=== PATIENT | female | born 1930 | race Caucasian/White ===

== ENCOUNTER 2016-09-28 16:59 | Emergency (ER) | payer MEDICARE, OTHER ==
[2016-09-28 17:21] VITALS: BP 158/82
[2016-09-28] MEDS ORDERED: Sodium Chloride 0.9% 10 ML Syringe FLUSH PRN (17:50)
[2016-09-28] MEDS ORDERED: Ondansetron 4 MG/2 ML SDV IVPUSH ONE (17:52)
[2016-09-28] MEDS ORDERED: Sodium Chloride 0.9% 500 ML IV ONE ×2 (17:52→19:20)
--- NOTE | 2016-09-28 17:52 | EDM.PDOC ---
<Peter Ramirez - Last Filed: 10/02/16 07:19> ED HPI GENERAL MEDICAL PROBLEM - General Chief Complaint: Gastrointestinal Problem Stated Complaint: VOMITING/DIARRHEA Time Seen by Provider: 09/28/16 17:32 - Related Data Allergies Allergy/AdvReac Type Severity Reaction Status Date / Time Penicillins Allergy unknown Verified 09/28/16 17:17 Course - Vital Signs Last Recorded V/S: Last Vital Signs Temp 36.2 C 09/28/16 17:17 Pulse 72 09/28/16 17:17 Resp 15 09/28/16 17:17 BP 158/82 H 09/28/16 17:17 Pulse Ox 94 L 09/28/16 17:17 Orthostatic Blood Pressure [ 143/74 Standing] Orthostatic Blood Pressure [ 149/79 Sitting] Orthostatic Blood Pressure [ 144/77 Supine] - Orders/Labs/Meds Labs: Laboratory Tests 09/28/16 09/28/16 09/28/16 Range/Units 18:20 18:20 18:20 WBC 12.69 H (3.98-10.04) K/mm3 RBC 5.23 H (3.98-5.22) M/mm3 Hgb 15.3 (11.2-15.7) gm/L Hct 46.5 H (34.1-44.9) % MCV 88.9 (79.4-94.8) fl MCH 29.3 (25.6-32.2) pg MCHC 32.9 (32.2-35.5) g/dl RDW Std Deviation 45.4 (36.4-46.3) fL Plt Count 291 (182-369) K/mm3 MPV 11.1 (9.4-12.3) fl Neut % (Auto) 87.6 H (34.0-71.1) % Lymph % (Auto) 8.8 L (19.3-51.7) % [place] % (Auto) 2.8 L (4.7-12.5) % Eos % (Auto) 0.3 L (0.7-5.8) Baso % (Auto) 0.2 (0.1-1.2) % Neut # (Auto) 11.12 H (1.56-6.13) K/mm3 Lymph # (Auto) 1.12 L (1.18-3.74) K/mm3 [place] # (Auto) 0.35 (0.24-0.36) K/mm3 Eos # (Auto) 0.04 (0.04-0.36) K/mm3 Baso # (Auto) 0.02 (0.01-0.08) K/mm3 Manual Slide Review Abnormal smear Sodium 144 (136-145) mEq/L Potassium 4.1 (3.5-5.1) mEq/L Chloride 107 (98-107) mEq/L Carbon Dioxide 27 (21-32) mEq/L Anion Gap 14.1 (5-15) BUN 15 (7-18) mg/dL Creatinine 1.1 H (0.55-1.02) mg/dL Est Cr Clr Drug Dosing 28.50 mL/min Estimated GFR (MDRD) 47 (>60) mL/min BUN/Creatinine Ratio 13.6 L (14-18) Glucose 132 H (83-115) mg/dL Calcium 9.8 (8.5-10.1) mg/dL Total Bilirubin 0.7 (0.2-1.0) mg/dL AST 18 (15-37) U/L ALT 30 (14-59) U/L Alkaline Phosphatase 84 (46-116) U/L Troponin I < 0.017 (0.00-0.056) ng/mL C-Reactive Protein < 0.2 (<1.0) mg/dL B-Natriuretic Peptide 81 (0-100) pg/mL Total Protein 8.0 (6.4-8.2) g/dl Albumin 4.0 (3.4-5.0) g/dl Globulin 4.0 gm/dL Albumin/Globulin Ratio 1.0 (1-2) Urine Color (Yellow) Urine Appearance (Clear) Urine pH (5.0-8.0) Ur Specific [place] (1.005-1.030) Urine Protein (Negative) Urine Glucose (UA) (Negative) Urine Ketones (Negative) Urine Occult Blood (Negative) Urine Nitrite (Negative) Urine Bilirubin (Negative) Urine Urobilinogen (0.2-1.0) Ur Leukocyte Esterase (Negative) Urine RBC (0-5) /hpf Urine WBC (0-5) /hpf Ur Epithelial Cells (0-5) /hpf Amorphous Sediment (NOT SEEN) /hpf Urine Bacteria (FEW) /hpf Urine Mucus (FEW) /hpf 09/28/16 Range/Units 19:17 WBC (3.98-10.04) K/mm3 RBC (3.98-5.22) M/mm3 Hgb (11.2-15.7) gm/L Hct (34.1-44.9) % MCV (79.4-94.8) fl MCH (25.6-32.2) pg MCHC (32.2-35.5) g/dl RDW Std Deviation (36.4-46.3) fL Plt Count (182-369) K/mm3 MPV (9.4-12.3) fl Neut % (Auto) (34.0-71.1) % Lymph % (Auto) (19.3-51.7) % [place] % (Auto) (4.7-12.5) % Eos % (Auto) (0.7-5.8) Baso % (Auto) (0.1-1.2) % Neut # (Auto) (1.56-6.13) K/mm3 Lymph # (Auto) (1.18-3.74) K/mm3 [place] # (Auto) (0.24-0.36) K/mm3 Eos # (Auto) (0.04-0.36) K/mm3 Baso # (Auto) (0.01-0.08) K/mm3 Manual Slide Review Sodium (136-145) mEq/L Potassium (3.5-5.1) mEq/L Chloride (98-107) mEq/L Carbon Dioxide (21-32) mEq/L Anion Gap (5-15) BUN (7-18) mg/dL Creatinine (0.55-1.02) mg/dL Est Cr Clr Drug Dosing mL/min Estimated GFR (MDRD) (>60) mL/min BUN/Creatinine Ratio (14-18) Glucose (83-115) mg/dL Calcium (8.5-10.1) mg/dL Total Bilirubin (0.2-1.0) mg/dL AST (15-37) U/L ALT (14-59) U/L Alkaline Phosphatase (46-116) U/L Troponin I (0.00-0.056) ng/mL C-Reactive Protein (<1.0) mg/dL B-Natriuretic Peptide (0-100) pg/mL Total Protein (6.4-8.2) g/dl Albumin (3.4-5.0) g/dl Globulin gm/dL Albumin/Globulin Ratio (1-2) Urine Color Yellow (Yellow) Urine Appearance Slt cloudy H (Clear) Urine pH 7.5 (5.0-8.0) Ur Specific [place] 1.020 (1.005-1.030) Urine Protein 1+ H (Negative) Urine Glucose (UA) Negative (Negative) Urine Ketones 1+ H (Negative) Urine Occult Blood Negative (Negative) Urine Nitrite Positive H (Negative) Urine Bilirubin Negative (Negative) Urine Urobilinogen 0.2 (0.2-1.0) Ur Leukocyte Esterase Negative (Negative) Urine RBC 0-5 (0-5) /hpf Urine WBC 0-5 (0-5) /hpf Ur Epithelial Cells 0-5 (0-5) /hpf Amorphous Sediment Moderate H (NOT SEEN) /hpf Urine Bacteria Many H (FEW) /hpf Urine Mucus Not seen (FEW) /hpf Meds: Medications Discontinued Medications Generic Name Dose Route Start Last Admin Trade Name Freq PRN Reason Stop Dose Admin Sodium Chloride 500 mls @ 500 mls/hr 09/28/16 17:52 09/28/16 18:21 Normal Saline IV 09/28/16 18:51 500 mls/hr ONETIME ONE Administration Sodium Chloride 500 mls @ 500 mls/hr 09/28/16 19:20 09/28/16 19:30 Normal Saline IV 09/28/16 20:19 500 mls/hr ONETIME ONE Administration Nitrofurantoin Macrocrystals 100 mg 09/28/16 19:58 09/28/16 20:22 Macrobid PO 09/28/16 19:59 100 mg ONETIME ONE Administration Ondansetron HCl 4 mg 09/28/16 17:52 09/28/16 18:22 Zofran IVPUSH 09/28/16 17:53 4 mg ONETIME ONE Administration Sodium Chloride 10 ml 09/28/16 17:50 09/28/16 18:22 Saline Flush FLUSH 10 ml ASDIRECTED PRN Administration Keep Vein Open - Re-Assessments/Exams Free Text/Narrative Re-Assessment/Exam: 10/02/16 07:19 urine culture comes back today showing that e coli grew out sensitive to macrobid prescribed. Maranda Ramirez MD 10/02/16 07:20 Departure - Departure Disposition: Home, Self-Care 01 Clinical Impression: Urinary tract infection - Discharge Information Instructions: Urinary Tract Infection, Adult Referrals: Iman Medina MD [Primary Care Provider] - Forms: ED Department Discharge Additional Instructions: Prescription for Zofran 1 tab every 8 hours sublingual #10. prescription for Macrobid 1 tab twice a day for 7 days #14. These were given through [facility]. Go home and rest. make sure you are drinking plenty of fluids. Take the Macrobid as prescribed. 1 tab twice a day for 7 days. Hyour first dose was given in the ER. Started your prescription tomorrow. Take the Zofran as prescribed. 1 tab sublingual every 8 hours as needed for nausea. Follow-up with your primary care provider next week. Please return to the ER if your symptoms change or worsen. <Debbie Toussaint - Last Filed: 10/02/16 09:16> ED HPI GENERAL MEDICAL PROBLEM - General Source of Information: Reports: Patient History Limitations: Reports: No Limitations - History of Present Illness INITIAL COMMENTS - FREE TEXT/NARRATIVE: 86 year old female presents for evaluation and treatment of nausea, vomiting and diarrhea. Reports symptoms started last night. Patient is pleasantly demented and her son provides most of the history. Current symptoms include nausea, vomiting, diarrhea, decreased appetite, light headed and weakness. Reports her last episode of diarrhea was this morning. Has difficulty quantifying the amount of vomiting and diarrhea. Denies any headaches, chest pain, shortness of breath, abdominal pain, melena, hematochezia, dysuria or hematuria. Patient denies any ill contacts. Patient traveled to [place] recently. No travel out of the country. Could not identify any foods or other trigger for the symptoms. Past Medical History HEENT History: Reports: Cataract, Impaired Vision Gastrointestinal History: Reports: None BI MANAGER History: Reports: Neurological History: Reports: Alzheimers Disease Psychiatric History: Reports: Alzheimers Disease, Dementia - Past Surgical History HEENT Surgical History: Reports: Cataract Surgery, LASIK GI Surgical History: Reports: Colonoscopy Neurological Surgical History: Reports: None Social & Family History - Family History Family Medical History: Noncontributory - Tobacco Use Smoking Status *Q: Never Smoker Second Hand Smoke Exposure: No - Caffeine Use Caffeine Use: Reports: Coffee - Recreational Drug Use Recreational Drug Use: No ED ROS GENERAL - Review of Systems Review Of Systems: See Below Constitutional: Reports: Malaise, Weakness, Decreased Appetite. Denies: Fever Respiratory: Denies: Shortness of Breath Cardiovascular: Denies: Chest Pain GI/Abdominal: Reports: Diarrhea, Decreased Appetite, Nausea, Vomiting. Denies: Abdominal Pain, Hematochezia, Melena : Denies: Dysuria, Hematuria Neurological: Denies: Headache ED EXAM, GI/ABD - Physical Exam Exam: See Below Exam Limited By: No Limitations General Appearance: Alert, WD/WN, No Apparent Distress Ears: Normal External Exam, Normal Canal, Hearing Grossly Normal, Normal TMs Nose: Normal Inspection Throat/Mouth: Normal Inspection, Normal Lips, Normal Gums, Normal Oropharynx, No Airway Compromise Respiratory/Chest: No Respiratory Distress, Lungs Clear Cardiovascular: Normal Peripheral Pulses, Regular Rate, Rhythm, No Murmur GI/Abdominal: Soft, Non-Tender Neurological: Alert, Confused (patient is pleasently demented; son reports this is her baseline) Psychiatric: Normal Affect, Normal Mood Skin Exam: Warm, Dry, Normal Color EKG INTERPRETATION EKG Date: 09/28/16 Time: 18:05 Rhythm: NSR Rate (Beats/Min): 75 [place]: Normal P-Wave: Present QRS: Normal ST-T: Normal QT: Normal Comparison: NA - No Prior EKG EKG Interpretation Comments: NSR at 75 bpm. No acute changes. Reviewed by myself and Dr. Ashraf. Course - Orders/Labs/Meds Labs: Laboratory Tests 09/28/16 09/28/16 09/28/16 Range/Units 18:20 18:20 18:20 WBC 12.69 H (3.98-10.04) K/mm3 RBC 5.23 H (3.98-5.22) M/mm3 Hgb 15.3 (11.2-15.7) gm/L Hct 46.5 H (34.1-44.9) % MCV 88.9 (79.4-94.8) fl MCH 29.3 (25.6-32.2) pg MCHC 32.9 (32.2-35.5) g/dl RDW Std Deviation 45.4 (36.4-46.3) fL Plt Count 291 (182-369) K/mm3 MPV 11.1 (9.4-12.3) fl Neut % (Auto) 87.6 H (34.0-71.1) % Lymph % (Auto) 8.8 L (19.3-51.7) % [place] % (Auto) 2.8 L (4.7-12.5) % Eos % (Auto) 0.3 L (0.7-5.8) Baso % (Auto) 0.2 (0.1-1.2) % Neut # (Auto) 11.12 H (1.56-6.13) K/mm3 Lymph # (Auto) 1.12 L (1.18-3.74) K/mm3 [place] # (Auto) 0.35 (0.24-0.36) K/mm3 Eos # (Auto) 0.04 (0.04-0.36) K/mm3 Baso # (Auto) 0.02 (0.01-0.08) K/mm3 Manual Slide Review Abnormal smear Sodium 144 (136-145) mEq/L Potassium 4.1 (3.5-5.1) mEq/L Chloride 107 (98-107) mEq/L Carbon Dioxide 27 (21-32) mEq/L Anion Gap 14.1 (5-15) BUN 15 (7-18) mg/dL Creatinine 1.1 H (0.55-1.02) mg/dL Est Cr Clr Drug Dosing 28.50 mL/min Estimated GFR (MDRD) 47 (>60) mL/min BUN/Creatinine Ratio 13.6 L (14-18) Glucose 132 H (83-115) mg/dL Calcium 9.8 (8.5-10.1) mg/dL Total Bilirubin 0.7 (0.2-1.0) mg/dL AST 18 (15-37) U/L ALT 30 (14-59) U/L Alkaline Phosphatase 84 (46-116) U/L Troponin I < 0.017 (0.00-0.056) ng/mL C-Reactive Protein < 0.2 (<1.0) mg/dL B-Natriuretic Peptide 81 (0-100) pg/mL Total Protein 8.0 (6.4-8.2) g/dl Albumin 4.0 (3.4-5.0) g/dl Globulin 4.0 gm/dL Albumin/Globulin Ratio 1.0 (1-2) Urine Color (Yellow) Urine Appearance (Clear) Urine pH (5.0-8.0) Ur Specific [place] (1.005-1.030) Urine Protein (Negative) Urine Glucose (UA) (Negative) Urine Ketones (Negative) Urine Occult Blood (Negative) Urine Nitrite (Negative) Urine Bilirubin (Negative) Urine Urobilinogen (0.2-1.0) Ur Leukocyte Esterase (Negative) Urine RBC (0-5) /hpf Urine WBC (0-5) /hpf Ur Epithelial Cells (0-5) /hpf Amorphous Sediment (NOT SEEN) /hpf Urine Bacteria (FEW) /hpf Urine Mucus (FEW) /hpf 09/28/16 Range/Units 19:17 WBC (3.98-10.04) K/mm3 RBC (3.98-5.22) M/mm3 Hgb (11.2-15.7) gm/L Hct (34.1-44.9) % MCV (79.4-94.8) fl MCH (25.6-32.2) pg MCHC (32.2-35.5) g/dl RDW Std Deviation (36.4-46.3) fL Plt Count (182-369) K/mm3 MPV (9.4-12.3) fl Neut % (Auto) (34.0-71.1) % Lymph % (Auto) (19.3-51.7) % [place] % (Auto) (4.7-12.5) % Eos % (Auto) (0.7-5.8) Baso % (Auto) (0.1-1.2) % Neut # (Auto) (1.56-6.13) K/mm3 Lymph # (Auto) (1.18-3.74) K/mm3 [place] # (Auto) (0.24-0.36) K/mm3 Eos # (Auto) (0.04-0.36) K/mm3 Baso # (Auto) (0.01-0.08) K/mm3 Manual Slide Review Sodium (136-145) mEq/L Potassium (3.5-5.1) mEq/L Chloride (98-107) mEq/L Carbon Dioxide (21-32) mEq/L Anion Gap (5-15) BUN (7-18) mg/dL Creatinine (0.55-1.02) mg/dL Est Cr Clr Drug Dosing mL/min Estimated GFR (MDRD) (>60) mL/min BUN/Creatinine Ratio (14-18) Glucose (83-115) mg/dL Calcium (8.5-10.1) mg/dL Total Bilirubin (0.2-1.0) mg/dL AST (15-37) U/L ALT (14-59) U/L Alkaline Phosphatase (46-116) U/L Troponin I (0.00-0.056) ng/mL C-Reactive Protein (<1.0) mg/dL B-Natriuretic Peptide (0-100) pg/mL Total Protein (6.4-8.2) g/dl Albumin (3.4-5.0) g/dl Globulin gm/dL Albumin/Globulin Ratio (1-2) Urine Color Yellow (Yellow) Urine Appearance Slt cloudy H (Clear) Urine pH 7.5 (5.0-8.0) Ur Specific [place] 1.020 (1.005-1.030) Urine Protein 1+ H (Negative) Urine Glucose (UA) Negative (Negative) Urine Ketones 1+ H (Negative) Urine Occult Blood Negative (Negative) Urine Nitrite Positive H (Negative) Urine Bilirubin Negative (Negative) Urine Urobilinogen 0.2 (0.2-1.0) Ur Leukocyte Esterase Negative (Negative) Urine RBC 0-5 (0-5) /hpf Urine WBC 0-5 (0-5) /hpf Ur Epithelial Cells 0-5 (0-5) /hpf Amorphous Sediment Moderate H (NOT SEEN) /hpf Urine Bacteria Many H (FEW) /hpf Urine Mucus Not seen (FEW) /hpf - Radiology Interpretation Free Text/Narrative:: chest 1 view shows no acute intrathoracic process. - Re-Assessments/Exams Free Text/Narrative Re-Assessment/Exam: 09/28/16 20:05 Labs returned wbc 12.69, hgb is 15.3, plts are 291 sodium is 144, potassium is 4.1 and chloride is 107. anion gap is 14.1. creatinine is 1.1 CRP is <0.2 trop is <0.017 BNP is 81 UA has many bacteria, negative for leuks but + for nitrites. 1+ protein and 1+ ketoens. urine sent for culture. I reviewed the labs with the patient and her son. She is feeling greatly improved. Nausea resolved. No vomiting since entering the ED. Will give a second 500 NS bolus. And plan on discharge home. 09/28/16 20:52 Patient is feeling greatly improved after 1 L NS and zofran. Will give macrobid here in the ER and discharge home. Follow-up with PCP. Departure - Departure Time of Disposition: 20:52 Condition: Fair
[2016-09-28] MEDS ORDERED: Nitrofurantoin Monohydrate/Macrocrystalline 100 MG Cap PO ONE (19:58)
--- NOTE | 2016-09-29 08:02 | CR ---
Chest: Portable view of the chest was obtained. Comparison: No previous study. Heart size is slightly prominent but accentuated from portable technique. Tortuous thoracic aorta is seen. Lungs are clear. Chronic rotator cuff tear is noted within the right shoulder. Bony structures are osteopenic. Surgical clips are seen within the lateral left chest wall. Impression: 1. Incidental findings. Nothing acute is identified on portable chest x-ray. Diagnostic code #2
== END 2016-09-28 21:00 | disposition home or self-care (01) ==
LOC: JD.ED 16:59
DX: N39.0 Urinary tract infection, site not specified (principal); G30.9 Alzheimer's disease, unspecified; F02.80 Dementia in other diseases classified elsewhere, unspecified severity, without behavioral disturbance, psychotic disturbance, mood disturbance, and anxiety; Z98.49 Cataract extraction status, unspecified eye; Z98.890 Other specified postprocedural states; Z88.0 Allergy status to penicillin
CPT/HCPCS: 36415; 71010; 80053; 81001; 83880; 84484; 85025; 86140; 87086; 87088; 87186; 93005; 96361; 96374; 99284; A9270; J2405; J7040; J7050

== ENCOUNTER 2018-05-18 10:58 | Emergency (ER) | payer MEDICARE, OTHER ==
[2018-05-18 11:17] VITALS: BP 142/77
--- NOTE | 2018-05-18 11:28 | EDM.PDOC ---
ED HPI GENERAL MEDICAL PROBLEM - General Chief Complaint: General Stated Complaint: FALLING/NOT EATING OR DRINKING Time Seen by Provider: 05/18/18 11:11 Source of Information: Reports: Patient, RN Notes Reviewed History Limitations: Reports: No Limitations - History of Present Illness INITIAL COMMENTS - FREE TEXT/NARRATIVE: Patient is an 88 year old, pleasantly demented female, who is brought into the ED by family and [facility] staff for the evaluation of increased falls, and weakness. The nurse from the [facility] staff noted that she has fallen at least 4 times within the last 2 weeks that they are aware of. The patient does live at home by herself currently, and [facility] checks on her 4 times per day. She was found in her bath tub, completely naked with no water around 1 week ago, [facility] staff is unsure of just how long she was sitting there. She had been started on TMP/SFX for UTI this last Tuesday05-15-18. The staff notes that when she stands up, she becomes pale in color and shaky. She was found to be hypotensive around 1 month ago and has been started on Midodrine 10mg TID for this. This has helped , but she is still having increased falls. The [facility] staff and daughter present do not know if she has hit her head on any of these falls. They state that her cognition level has not necessarily gotten worse, but has not improved. They state that when she looks at them now, they feel as if she is just looking through them and not at them. She is under the care of Dr. Tima Em. The [facility] staff also state they notice she has not been eating or drinking much as well. - Related Data Allergies Allergy/AdvReac Type Severity Reaction Status Date / Time Penicillins Allergy unknown Verified 09/28/16 17:17 Home Meds: Home Meds Calcium Carbonate/Vitamin D3 [Calcium 600 + Vit D Tablet] 1 cap PO DAILY [History] Cranberry Conc/C/Bacill Coag [Cranberry Tablet] 425 mg PO BID 05/18/18 [History] Cyanocobalamin (Vitamin B12) [Vitamin B12] 1 injection INJECT ASDIRECTED [History] Donepezil HCl 10 mg PO BEDTIME 05/18/18 [History] Ergocalciferol (Vitamin D2) [Vitamin D2] 50,000 unit PO ASDIRECTED 05/18/18 [ History] Escitalopram [Lexapro] 10 mg PO BEDTIME 05/18/18 [History] Hydrochlorothiazide [Microzide] 12.5 mg PO DAILY 05/18/18 [History] Ibuprofen [Motrin] 400 mg PO TID 05/18/18 [History] L.acidoph,Saliva/B.bif/S.therm [Acidophilus] 175 mg PO DAILY 05/18/18 [History] Lactobacillus Acidophilus/Pect [Acidophilus-Pectin Capsule] 100 mg PO DAILY [History] Memantine HCl 10 mg PO BID 05/18/18 [History] Midodrine 10 mg PO TID 05/18/18 [History] Edcouch-3 Acid Ethyl Esters 1 gram PO DAILY 05/18/18 [History] Potassium Chloride [Klor-Con M20] 20 meq PO DAILY 05/18/18 [History] Sulfamethoxazole/Trimethoprim [Sulfamethoxazole-Tmp Ds Tablet] 1 tab PO BID [History] Trolamine Salicylate [Asper-Flex] 1 applic TOP QID PRN 05/18/18 [History] Past Medical History HEENT History: Reports: Cataract, Impaired Vision Gastrointestinal History: Reports: None [employer] History: Reports: Neurological History: Reports: Alzheimers Disease Psychiatric History: Reports: Alzheimers Disease, Dementia - Past Surgical History HEENT Surgical History: Reports: Cataract Surgery, LASIK GI Surgical History: Reports: Colonoscopy Neurological Surgical History: Reports: None Social & Family History - Family History Family Medical History: Noncontributory - Tobacco Use Smoking Status *Q: Never Smoker - Caffeine Use Caffeine Use: Reports: Coffee - Recreational Drug Use Recreational Drug Use: No ED ROS GENERAL - Review of Systems Review Of Systems: See Below Constitutional: Reports: Weakness. Denies: Fever, Chills HEENT: Reports: No Symptoms Respiratory: Reports: No Symptoms Cardiovascular: Reports: No Symptoms Endocrine: Reports: No Symptoms GI/Abdominal: Reports: No Symptoms : Reports: No Symptoms, Other (recent UTI diagnosis) Musculoskeletal: Reports: No Symptoms Skin: Reports: No Symptoms Neurological: Reports: Dizziness, Weakness. Denies: Difficulty Walking, Change in Speech, Gait Disturbance Psychiatric: Reports: Other (severe dementia). Denies: Agitation, Anxiety Hematologic/Lymphatic: Reports: No Symptoms Immunologic: Reports: No Symptoms ED EXAM, GENERAL - Physical Exam Exam: See Below Exam Limited By: No Limitations General Appearance: Alert, WD/WN, No Apparent Distress Ears: Normal External Exam Nose: Normal Inspection Throat/Mouth: Normal Inspection, Normal Oropharynx, No Airway Compromise Head: Atraumatic, Normocephalic Neck: Normal Inspection, Supple, Non-Tender, Full Range of Motion Respiratory/Chest: No Respiratory Distress, Lungs Clear, Normal Breath Sounds, No Accessory Muscle Use, Chest Non-Tender Cardiovascular: Normal Peripheral Pulses, Regular Rate, Rhythm, No Edema, No Murmur GI/Abdominal: Normal Bowel Sounds, Soft, No Distention, No Mass, Tender ( suprapubic). No: Guarding, Rigid, Rebound Extremities: Normal Inspection, Normal Capillary Refill Neurological: Alert, CN II-XII Intact, No Motor/Sensory Deficits Psychiatric: Normal Affect, Normal Mood Skin Exam: Warm, Dry, Intact, Normal Color, No Rash EKG INTERPRETATION EKG Date: 05/18/18 Time: 12:25 Rhythm: Other (Sinus Bradycardia) Rate (Beats/Min): 57 [place]: Normal () P-Wave: Present QRS: Normal ST-T: Normal QT: Prolonged (slightly, 456) EKG Interpretation Comments: Reviewed with Dr. Ashraf. Course - Vital Signs Last Recorded V/S: Last Vital Signs Temp 97.2 F 05/18/18 11:16 Pulse 61 05/18/18 11:16 Resp 20 05/18/18 11:16 BP 142/77 H 05/18/18 11:16 Pulse Ox 95 05/18/18 11:16 - Orders/Labs/Meds Orders: Active Orders 24 hr Category Date Time Status EKG Documentation Completion [RC] STAT Care 05/18/18 11:43 Ordered Peripheral IV Care [RC] . DIRECTED Care 05/18/18 11:44 Ordered UA W/MICROSCOPIC [URIN] Stat Lab 05/18/18 11:43 Ordered Sodium Chloride 0.9% [Normal Saline] 1,000 ml Med 05/18/18 11:45 Ordered IV ASDIRECTED Sodium Chloride 0.9% [Saline Flush] Med 05/18/18 11:43 Ordered 10 ml FLUSH ASDIRECTED PRN Peripheral IV Insertion Adult [OM.PC] Routine Oth 05/18/18 11:43 Ordered Medication Orders Sodium Chloride (Normal Saline) 1,000 mls @ 500 mls/hr IV ASDIRECTED RAFAEL Last Admin: 05/18/18 12:02 Dose: 500 mls/hr Sodium Chloride (Saline Flush) 10 ml FLUSH ASDIRECTED PRN PRN Reason: Keep Vein Open Last Admin: 05/18/18 12:02 Dose: 10 ml Labs: Laboratory Tests 05/18/18 05/18/18 05/18/18 Range/Units 11:59 11:59 12:07 WBC 12.76 H (3.98-10.04) K/mm3 RBC 5.14 (3.98-5.22) M/mm3 Hgb 15.1 (11.2-15.7) gm/L Hct 45.4 H (34.1-44.9) % MCV 88.3 (79.4-94.8) fl MCH 29.4 (25.6-32.2) pg MCHC 33.3 (32.2-35.5) g/dl RDW Std Deviation 45.8 (36.4-46.3) fL Plt Count 309 (182-369) K/mm3 MPV 11.8 (9.4-12.3) fl Neutrophils % (Manual) 82 H (40-60) % Band Neutrophils % 0 (0-10) % Lymphocytes % (Manual) 11 L (20-40) % Atypical Lymphs % 0 % Monocytes % (Manual) 6 (2-10) % Eosinophils % (Manual) 0 L (0.7-5.8) % Basophils % (Manual) 1 (0.1-1.2) Platelet Estimate Adequate Plt Morphology Comment See note RBC Morph Comment Normal Sodium 141 (136-145) mEq/L Potassium 4.0 (3.5-5.1) mEq/L Chloride 99 (98-107) mEq/L Carbon Dioxide 29 (21-32) mEq/L Anion Gap 17.0 H (5-15) BUN 40 H (7-18) mg/dL Creatinine 2.2 H (0.55-1.02) mg/dL Est Cr Clr Drug Dosing TNP Estimated GFR (MDRD) 21 (>60) mL/min BUN/Creatinine Ratio 18.2 H (14-18) Glucose 110 (83-115) mg/dL Calcium 10.7 H (8.5-10.1) mg/dL Magnesium 1.7 L (1.8-2.4) mg/dl Total Bilirubin 0.8 (0.2-1.0) mg/dL AST 15 (15-37) U/L ALT 20 (14-59) U/L Alkaline Phosphatase 133 H (46-116) U/L Troponin I < 0.017 (0.00-0.056) ng/mL Total Protein 8.1 (6.4-8.2) g/dl Albumin 3.9 (3.4-5.0) g/dl Globulin 4.2 gm/dL Albumin/Globulin Ratio 0.9 L (1-2) Urine Color Yellow (Yellow) Urine Appearance Clear (Clear) Urine pH 6.5 (5.0-8.0) Ur Specific Flushing 1.020 (1.005-1.030) Urine Protein Negative (Negative) Urine Glucose (UA) Negative (Negative) Urine Ketones Trace H (Negative) Urine Occult Blood Negative (Negative) Urine Nitrite Negative (Negative) Urine Bilirubin Negative (Negative) Urine Urobilinogen 1.0 (0.2-1.0) Ur Leukocyte Esterase Negative (Negative) Urine RBC 0-5 (0-5) /hpf Urine WBC 0-5 (0-5) /hpf Ur Epithelial Cells 0-5 (0-5) /hpf Urine Bacteria Few (FEW) /hpf Hyaline Casts 10-20 H (0-5) /lpf Meds: Medications Generic Name Dose Route Start Last Admin Trade Name Freq PRN Reason Stop Dose Admin Sodium Chloride 1,000 mls @ 500 mls/hr 05/18/18 11:45 05/18/18 12:02 Normal Saline IV 500 mls/hr ASDIRECTED RAFAEL Administration Sodium Chloride 10 ml 05/18/18 11:43 05/18/18 12:02 Saline Flush FLUSH 10 ml ASDIRECTED PRN Administration Keep Vein Open Discontinued Medications Generic Name Dose Route Start Last Admin Trade Name Freq PRN Reason Stop Dose Admin Metoclopramide HCl 10 mg 05/18/18 13:25 05/18/18 13:29 Reglan IVPUSH 05/18/18 13:26 10 mg ONETIME ONE Administration - Re-Assessments/Exams Free Text/Narrative Re-Assessment/Exam: 05/18/18 12:03 Pt presents to the ED for the evaluation of falls/weakness. I have ordered IV Fluids,CBC, CMP, magnesium, UA, troponin, CXR, EKG, and head CT for initial evaluation/management. I do not believe that she has any acute abnormality in her head, however with her recent, possibly unwitnessed falls I cannot be sure that there may be an older injury present. It is my impression that she may need [facility] [facility] for increased falls and general decompensation. She is a code 3, DNR. Have had the ward supervisor call Rosenda Fernandez, our social work manager about NH placement. I am unsure if we have any available beds open in our hospital at this time. 05/18/18 13:08 Labs and imaging studies have been done. CXR is WNL, EKG is WNL, labs are essentially WNL, she is a little dry, so the IV fluids should help. I did look over her head CT with Dr. Ashraf and he states there is degenerative change, and her cerebellum is decreased in size as well, which may be why she is having increased falls too. There are no acute abnormalities appreciated. 05/18/18 13:16 Rosenda Fernandez is here to discuss options with family about possible placement. 05/18/18 14:01 Rosenda Fernandez has informed me that she was talking with [facility] staff, and they feel comfortable increasing cares to the patient, and notes that her son lives in the apartment right next door. Her UTI is resolving with the TMP/sulfa. I did recommend the possibility of walker, as she is having increased falls. This will be relayed to the [facility] staff. She should be able to be discharged safely home with this plan. Departure - Departure Time of Disposition: 14:04 Disposition: Home, Self-Care 01 Condition: Fair Clinical Impression: Frequent falls, Weakness generalized - Discharge Information *PRESCRIPTION DRUG MONITORING PROGRAM REVIEWED*: No *COPY OF PRESCRIPTION DRUG MONITORING REPORT IN PATIENT PEDRO: No Instructions: Fall Prevention in the Home, [id number], Weakness, [id number] Referrals: Tima Em MD [Primary Care Provider] - Forms: ED Department Discharge Additional Instructions: Molly has been evaluated in the ED for increased falls/weakness. Her labs indicated that she was a little dehydrated, she has received IV fluids in the ED today for this. Her head CT did not demonstrate any acute abnormalities, but did show degenerative change, even in the cerebellum, which could be one reason for her increased falls. Recommend ambulation with walker to try to prevent future falls. [facility] is to increase their cares as appropriate and will re-assess the need for increase in her daily cares as appropriate. Please return to ED if her symptoms should change or worsen. - My Orders Last 24 Hours: My Active Orders 05/18/18 11:43 EKG Documentation Completion [RC] STAT UA W/MICROSCOPIC [URIN] Stat Sodium Chloride 0.9% [Saline Flush] 10 ml FLUSH ASDIRECTED PRN Peripheral IV Insertion Adult [OM.PC] Routine 05/18/18 11:44 Peripheral IV Care [RC] . DIRECTED 05/18/18 11:45 Sodium Chloride 0.9% [Normal Saline] 1,000 ml IV ASDIRECTED - Assessment/Plan Last 24 Hours: My Active Orders 05/18/18 11:43 EKG Documentation Completion [RC] STAT UA W/MICROSCOPIC [URIN] Stat Sodium Chloride 0.9% [Saline Flush] 10 ml FLUSH ASDIRECTED PRN Peripheral IV Insertion Adult [OM.PC] Routine 05/18/18 11:44 Peripheral IV Care [RC] . DIRECTED 05/18/18 11:45 Sodium Chloride 0.9% [Normal Saline] 1,000 ml IV ASDIRECTED
[2018-05-18] MEDS ORDERED: Sodium Chloride 0.9% 10 ML Syringe FLUSH PRN (11:43)
[2018-05-18] MEDS ORDERED: Sodium Chloride 0.9% 1,000 ML IV SCH (11:45)
--- NOTE | 2018-05-18 12:32 | CR ---
Chest: Portable view of the chest was obtained. Comparison: Prior chest x-ray of 09/28/16. Heart size and mediastinum are within normal limits. Lungs are clear. Surgical clips are seen within the left axillary region. Impression: 1. Nothing acute is appreciated on portable chest x-ray. Diagnostic code #2
--- NOTE | 2018-05-18 12:59 | CT ---
Head CT Technique: Multiple axial sections through the brain were obtained. Intravenous contrast was not utilized. Comparison: No prior intracranial imaging. Findings: Ventricles along with basal cisterns and sulci over convexities are moderately prominent. Diminished density is noted within portions of the periventricular and subcortical white matter compatible with small vessel ischemic demyelination change. Similar findings are seen within portions of the basal ganglia. Incidental basal ganglia calcification is seen. No evidence of intracranial hemorrhage. No midline shift or mass effect is seen. Bone window settings were reviewed which shows no acute calvarial abnormality. Visualized sinuses are clear. Impression: 1. Senescent change as noted above. 2. Nothing acute is appreciated on noncontrast head CT exam. Diagnostic code #2
[2018-05-18] MEDS ORDERED: Metoclopramide 10 MG/2 ML SDV IVPUSH ONE (13:25)
== END 2018-05-18 14:35 | disposition home or self-care (01) ==
LOC: JD.ED 10:58
DX: R53.1 Weakness (principal); R29.6 Repeated falls; G30.9 Alzheimer's disease, unspecified; F02.80 Dementia in other diseases classified elsewhere, unspecified severity, without behavioral disturbance, psychotic disturbance, mood disturbance, and anxiety; Z88.0 Allergy status to penicillin; Z79.899 Other long term (current) drug therapy
CPT/HCPCS: 36415; 70450; 71045; 80053; 81001; 83735; 84484; 85007; 85027; 93005; 96361; 96374; 99285; J2765; J7040; 93010; 99284